=== PATIENT | male | born 1960 | race Caucasian/White ===

== ENCOUNTER 2018-01-22 06:52 | Day surgery (SDC) | payer OTHER ==
[2018-01-22 07:17] VITALS: BMI 24.9
[2018-01-22] MEDS ORDERED: Propofol 10 mg/ml Inj (20 ML) ONE (08:35)
[2018-01-22 09:25] VITALS: TEMP 98.3; O2SAT 100
[2018-01-22 09:36] VITALS: PULSE 60
[2018-01-22 10:25] VITALS: BP 121/70; RESP 15
== END 2018-01-22 10:15 | disposition home or self-care (01) ==
LOC: C.ENDO 06:52
PROVIDERS: ATTEND Internal Medicine Gastroenterology
DX: Z12.11 Encounter for screening for malignant neoplasm of colon (principal); K64.1 Second degree hemorrhoids; I10 Essential (primary) hypertension; Z86.010 Personal history of colon polyps; D12.3 Benign neoplasm of transverse colon